=== PATIENT | male | born 1965 | race Caucasian/White ===

== ENCOUNTER 2022-06-03 12:12 | Outpatient (CLI) | payer OTHER, SELFPAY ==
--- NOTE | ~2022-06-03 | CT_ITS ---
EXAMINATION: CT abdomen pelvis wo con DATE: 06/03/2022 12:41 INDICATION: Severe back pain for 2 days. History of ureteral stones. TECHNIQUE: Computed tomography (CT) of the abdomen and pelvis was performed without intravenous contr ast. Automated exposure control and iterative reconstruction technique were employed. Exam dose: 376 .95 mGy-cm total exam DLP. COMPARISON: None. FINDINGS: There is minimal discoid atelectasis or scarring in the dependent lower lobes. The lung bas es are clear of infiltrate or consolidation. Normal heart size. No pericardial or pleural effusion. Very small sliding hiatal hernia The liver, gallbladder, bile ducts, pancreas, pancreatic duct and spleen are unremarkable. Normal morphology of the adrenal glands. No renal mass lesion is evident on this limited noncontrast examination. Small area of arterial calcification or nonobstructing calculus of each kidney, measuring 2 mm on the right, 1.6 x 3.8 mm on the left. No ureteral calculus or hydroureteronephrosis. The urinary bladder is unremarkable. Mild prostate gla nd enlargement. There is atherosclerotic calcification but normal caliber of the abdominal aorta and iliac and femora l arteries. No intraperitoneal or retroperitoneal or pelvic mass lesion or adenopathy or ascites. Normal. Appendix. No bowel obstruction, bowel wall thickening, pneumatosis or intraperitoneal free ai r. Very small fat-containing umbilical hernia. No suspicious osteolytic or osteoblastic lesions. There is severe degenerative disc disease at L4-5. Bilateral hip osteoarthritis. IMPRESSION: Very small sliding hiatal hernia Small calculus versus arterial calcification of each kidney; no ureteral calculus or hydroureteroneph rosis Reviewed, dictated and finalized at [facility]. Reviewed, dictated and finalized at [facility]. IMPRESSION: Very small sliding hiatal hernia Small calculus versus arterial calcification of each kidney; no ureteral calcul us or hydroureteronephrosis
== END 2022-06-03 12:13 | disposition home or self-care (01) ==
LOC: ANHIMG 12:17
PROVIDERS: PCP Family Medicine; Visit Provider Family Medicine
DX: N20.2 Calculus of kidney with calculus of ureter (principal); K44.9 Diaphragmatic hernia without obstruction or gangrene
CPT/HCPCS: 74176

== ENCOUNTER 2024-01-29 11:28 | Outpatient (CLI) | payer OTHER, SELFPAY ==
[2024-01-29 12:17] LABS: Influenza A QL RT-PCR Positive (Negative); Influenza B QL RT-PCR Negative (Negative); RSV RNA, RT-PCR Negative (Negative); SARS-CoV-2 RNA PCR Negative (Negative)
== END 2024-01-29 11:29 | disposition home or self-care (01) ==
LOC: ANHLAB 11:30
PROVIDERS: PCP Family Medicine; Visit Provider Family Medicine
DX: J11.1 Influenza due to unidentified influenza virus with other respiratory manifestations (principal); Z20.822 Contact with and (suspected) exposure to COVID-19
CPT/HCPCS: 87637

== ENCOUNTER → 2024-03-03 09:46 | Outpatient (CLI) | payer OTHER, SELFPAY | PROVIDERS: PCP Family Medicine; Visit Provider Family Medicine | DX: G89.29 Other chronic pain (principal); M25.562 Pain in left knee | CPT/HCPCS: 73564 ==

== ENCOUNTER 2024-04-08 07:48 | Outpatient (CLI) | payer OTHER, SELFPAY ==
--- NOTE | ~2024-04-08 | MR_ITS ---
MRI of the left knee Clinical history: Pain Technique: Coronal proton density and proton density-weighted images, sagittal proton-density and T2 fat-sat images, and axial proton-density fat-saturated images were acquired. Findings: Anterior and posterior cruciate ligaments are intact. Medial collateral ligament and the la teral collateral ligament complex are intact. Popliteus tendon is intact. There is probable focal complex tear of the body segment of the medial meniscus. No lateral meniscal tear seen. There is moderate chondromalacia extensively involving the medial femoral condyle. There is an intram edullary lesion of the distal femur, most compatible with enchondroma, measuring 3 cm in length. Extensor mechanism is intact. Small joint effusion present. No Dickerson's cyst. Impression: Probable focal complex tear of the body segment of the medial meniscus. Moderate chondromalacia the medial femoral condyle. 3 cm distal femoral enchondroma. Small joint effusion. Reviewed, dictated and finalized at [facility]. Impression: Probable focal complex tear of the body segment of the medial meniscus. Moderate chondromalacia the medial femoral condyle. 3 cm distal femoral enchondroma. Small joint effusion.
== END 2024-04-08 07:49 ==
LOC: MICIMG 07:49
PROVIDERS: PCP Family Medicine; Visit Provider Orthopaedic Surgery
DX: M94.262 Chondromalacia, left knee (principal); D16.22 Benign neoplasm of long bones of left lower limb; M25.462 Effusion, left knee
CPT/HCPCS: 73721

== ENCOUNTER 2024-10-20 12:26 | Outpatient (CLI) | payer OTHER, SELFPAY ==
--- NOTE | 2024-10-20 12:30 | ECG_ITS ---
Test Date: 2024-10-20 12:41:53 Measurements Intervals [place] Rate: 66 P: 24 TN: 138 QRS: -5 QRSD: 112 T: 11 QT: 425 QTc: 447 Interpretive Statements SINUS RHYTHM WITH SINUS ARRHYTHMIA INCOMPLETE RIGHT BUNDLE BRANCH BLOCK BORDERLINE R WAVE PROGRESSION, ANTERIOR LEADS BORDERLINE T WAVE ABNORMALITY- INFERIOR LEADS BASELINE ARTIFACT- I, II, III, AVR, AVL, AVF BORDERLINE ECG No previous ECG available for comparison Electronically Signed On 10-20-2024 13:22:42 [employer] [employer] by Bryon Horn D.O.
== END 2024-10-20 12:27 | disposition home or self-care (01) ==
LOC: ANHSURGERY 12:29
PROVIDERS: PCP Family Medicine; Visit Provider Orthopaedic Surgery
DX: R94.31 Abnormal electrocardiogram [ECG] [EKG] (principal); I10 Essential (primary) hypertension
CPT/HCPCS: 93005

== ENCOUNTER 2024-10-27 01:33 | Day surgery (SDC) | payer OTHER, SELFPAY ==
[2024-10-15 14:34] VITALS: BMI 31.2
--- NOTE | 2024-10-15 14:42 | PC.NURSE ---
Report to the Outpatient Waiting Room, entrance under the green pavilion located off [facility], at time _1200_ on date _[id number]_. Planned Procedure Time: _2pm_.? Time changes happen often and if your time is changed the preop area will call you the afternoon before. - You and your visitor will be asked to self-screen and do not enter if you have any COVID symptoms. Please call surgeon if you need to reschedule. - A mask is optional within the hospital at this time. Patients may have clear liquids (water, carbonated beverages, clear teas, apple juice) until 3 hours prior to surgery with a maximum of 20 ounces. - No food from midnight until time of surgery and no smoking. This includes no chewing gum, candy or mints. Take only the following medications with a SIP of water on the morning of surgery: ____None DO NOT STOP ANY OF YOUR OTHER PRESCRIPTION MEDICATIONS PRIOR TO SURGERY EXCEPT THE FOLLOWING Medications to discontinue per physician ___Patient planning to take no more naproxen until after surgery.____ Date to take last dose Please no make-up, nail armenian, hairspray, perfume, deodorant, or body powder the day of surgery.? No jewelry (including any body piercings) or valuables the day of surgery, leave them at home.? Please take a shower or bath the night before, or the morning of, surgery with an antibacterial soap.? Wear comfortable, loose fitting clothing.? - Jewelry must be removed prior to entering the operating room.? Rings and piercings that are not removed may be cut off. - The hospital will not accept responsibility for valuables.? - Please leave all valuables, including medications, at home the day of surgery. If you are going home after surgery, a licensed hyster driver must drive you home.? - NO public transportation without another adult if you receive anesthesia. - We recommend that an adult stay with you for 24 hours following discharge. - We also recommend that you do not drive, make important decision, drink alcoholic beverages, or take any drugs that were not prescribed by your health care provider for at least 24 hours after your discharge time. Follow any additional instructions given to you from your surgeon. Telephone instructions given to _Nasir__and asked if any additional questions and then verbalized understanding. Patient advised to call surgeon office or pre surgery nurse liaison [phone] if any additional questions.
[2024-10-27] VITALS (9 sets, daily range): BP systolic 112–156; BP diastolic 71–98; PULSE 50–65; RESP 10–18; TEMP 36.5–36.7; O2SAT 96–100; BMI 29.5
--- NOTE | 2024-10-27 07:24 | WPDHPUPDATE1 ---
History and Physical Update Update Date/Time: 10/27/24 07:24 History and Physical has been reviewed, including an updated exam of the patient. There are NO changes in the patient's condition. Risks, benefits, and alternatives have been discussed and questions answered. Patient agrees to proceed with procedure.
[2024-10-27] MEDS: CELECOXIB 200 MG CAPSULE PO (11:30)
[2024-10-27] MEDS: ACETAMINOPHEN 500 MG TABLET 1000 MG PO (11:30)
[2024-10-27] MEDS: LACTATED RINGERS 1,000 ML 30 ML IV CONT ×2 (11:50→13:16)
--- NOTE | 2024-10-27 11:57 | P.PNAN_ITS ---
Anes - Initial Pre Proc Eval Procedure: Operation Date: 10/27/24 11:30 Proposed Procedures p Left Knee Arthroscopy, Proceed As Indicated - Thomas Haines MD Date/Time: 10/27/24 11:57 Surgeon: Thomas Haines MD Pre Op Diagnosis: Lt Knee Medial Meniscus Tear Patient Data Age: 59 Gender: M Height: 1.83 m Weight: 104.5 kg Allergies Allergy/AdvReac Type Severity Reaction Status Date / Time No Known Allergies Allergy Verified 10/27/24 11:45 Home Medications Medication Instructions Recorded Confirmed Type alprazolam 0.5 mg tablet 0.5 mg PO BID PRN anxiety #20 tabs 02/05/23 10/15/24 Rx naproxen 500 mg tablet (Naprosyn) 500 mg PO BID PRN pain #60 tabs 04/01/24 10/27/24 Rx atorvastatin 10 mg tablet 10 mg PO DAILY #90 tabs 05/20/24 10/15/24 Rx lisinopril 10 mg tablet 10 mg PO DAILY #90 tabs 05/20/24 10/15/24 Rx sildenafil 100 mg tablet 100 mg PO DAILY PRN sexual 09/29/24 10/15/24 Rx activity #30 tabs omeprazole 20 mg capsule,delayed 20 mg PO DAILY #90 caps 09/30/24 10/15/24 Rx release chlorhexidine gluconate 4 % 1 applic topical ONCE #237 mL 10/20/24 Rx topical liquid (Hibiclens) hydrocodone 5 mg-acetaminophen 325 1 tablet PO Q12H PRN pain #20 tabs 10/27/24 Rx mg tablet Patient hx anesthesia problems: none Family hx anesthesia problems: none Results Review: All pre-operative results and documents have been reviewed as part of the pre- operative evaluation. [facility] Past Medical History Medical History Acute low back pain with right-sided sciatica (06/01/22) CT of the abdomen pelvis on 06/03/2022 was unremarkable except for severe degenerative disc disease at L4-L5 and bilateral osteoarthritis of the hips. Acute non-recurrent maxillary sinusitis BMI 31.0-31.9,adult BMI 32.0-32.9,adult BMI 33.0-33.9,adult Chronic pain of left knee X-ray left knee 03/03/2024 was normal. MRI 04/08/2024 with probable focal complex tear of the medial meniscus, moderate chondromalacia, 3 cm enchondroma of the distal femur. Chronic pain of right hip Contact dermatitis due to plant (~06/2023) Erectile dysfunction Total testosterone 583 with free testosterone 11.19 on 12/28/2022. Fear of flying (~12/26/22) GERD (gastroesophageal reflux disease) (~09/2022) History of meniscal tear Influenza-like illness (~01/27/24) Muscle spasm Neuritis of right ulnar nerve (~11/2022) Vitamin B12 and folic acid are normal 12/28/2022. Obesity (BMI 30.0-34.9) Polyp, sigmoid colon Rib pain on right side (~06/2024) Seasonal allergies Surgical History Surgical History History of eye surgery History of hernia repair Social History Social History Social History: caffeine use Smoking status: Never smoker Alcohol intake: current Drinks per week: 6 Alcohol use details: socially, beer Substance use: never Substance use type: does not use Lack of Transportation: No Lack of Food: Never True Current Housing: I Have Housing Concerned About Future Housing: No Difficulty Paying Gas/Electric Bills: No Difficulty Paying for Meds: No Currently Unemployed: No Education: Master's Degree or Higher Difficulty w/ Childcare or Family Care: No Living arrangements: with family Occupation/Education: occupation Additional occupation/education comments: Human Resources Gender identity (if verbalized by the patient): Male Spiritual care concerns: No Anes - Eval Final PreProcedure Day of Procedure 10/27/24 11:57 Patient weight: obese Heart: regular rate and rhythm Lungs: clear to auscultation Airway: Mallampati scale class II Neurological: alert and oriented Last oral intake: >/= 8 hours ASA classification: III Emergent: no Anesthetic plan: proceed Anesthesia type and monitoring: general LMA and standard monitoring Results Review: All pre-operative results and documents have been reviewed as part of the pre- operative evaluation. Informed Consent: The patient's anesthetic plan and its attendant risks and benefits were discussed with the patient/family/POA. Questions were solicited and answers provided to the satisfaction of the patient/family/POA.
[2024-10-27] MEDS: ceFAZolin 2 GM/D5W 50 ML 2 GM/50 ML BAG IVPB (12:09)
[2024-10-27] MEDS: BUPivacaine HCL 0.5% 10 ML AMP 30 ML INFILTRATE (12:27)
--- NOTE | 2024-10-27 13:18 | W.PM.PROC2 ---
Procedure Note - Detailed Date of Procedure 10/27/24 Pre-op Diagnosis Lt Knee Medial Meniscus Tear Post-op Diagnosis Same Procedure Performed LEFT KNEE SCOPE Surgeon Thomas Haines MD Anesthesia General Description of Procedure PATIENT WAS TAKEN TO THE OR. LEFT LEG WAS PREPPED AND DRAPED STERILE. TROCARS WERE PLACED IN THE USUAL FASHION. CAMERA WAS INTRODUCED. THERE WAS SEVERE CHONDROMALACIA TO THE PATELLA FEMORAL JOINT. THERE WAS A LOT OF SYNOVITIS IN ALL COMPARTMENTS. THE MEDIAL COMPARTMENT SHOWED CHONDROMALACIA TO THE MEDIAL FEMORAL CONDYLE. A SHAVER WAS USED TO PREFORM A CHONDROPLASTY. THERE WAS A COMPLEX MEDIAL MENISCUS TEAR. THE TEAR WAS RESECTED WITH A BITER AND A SHAVER DOWN TO A SMOOTH BASE. THE ACL WAS PARTIALLY TORN BUT INTACT. THE LATERAL MENISCUS WAS NOT TORN. THE LATERAL COMPARTMENT HAD MINIMAL CHONDROMALACIA. CHONDROPLASTY WAS PREFORMED. A SYNOVECTOMY WAS PREFORMED WELL. THE PATELLO FEMORAL JOINT UNDERWENT CHONDROPLASTY. THERE WAS GRADE 2 AND 3 CHONDROMALACIA IN PART OF THE TROCHLEA AND PART OF THE PATELLA. SYNOVECTOMY WAS PREFORMED IN THE SUPERIOR MEDIAL COMPARTMENT. THE WOUNDS WERE APPROXIMATED WITH 4.0 NYLON. STERILE DRESSING WAS APPLIED. PATIENT WAS EXTUBATED. Estimated Blood Loss 5 Complications No immediate complications Condition Stable Disposition PACU
[2024-10-27] MEDS: fentaNYL CITRATE INJ (*CRX) 100 MCG/2 ML VIAL 25 MCG IV PUSH ×6 (13:43→14:08)
[2024-10-27] MEDS: oxyCODONE HCL (*CRX) 5 MG TAB IR PO (14:40)
== END 2024-10-27 15:25 | disposition home or self-care (01) ==
PROVIDERS: PCP Family Medicine; Visit Provider Orthopaedic Surgery
PROC: (CPT 29870; principal; 2024-10-27 11:30)
DX: S83.232A Complex tear of medial meniscus, current injury, left knee, initial encounter (principal); M94.262 Chondromalacia, left knee; M65.862 Other synovitis and tenosynovitis, left lower leg; G89.29 Other chronic pain; M25.551 Pain in right hip; N52.9 Male erectile dysfunction, unspecified; K21.9 Gastro-esophageal reflux disease without esophagitis; M62.838 Other muscle spasm; E66.9 Obesity, unspecified; Z68.29 Body mass index [BMI] 29.0-29.9, adult; X58.XXXA Exposure to other specified factors, initial encounter; Z79.1 Long term (current) use of non-steroidal anti-inflammatories (NSAID); Z79.891 Long term (current) use of opiate analgesic; Z98.890 Other specified postprocedural states; Z96.651 Presence of right artificial knee joint; Z86.0100 Personal history of colon polyps, unspecified
CPT/HCPCS: 29881; 29876; A9270; J0690; J1100; J2250; J2405; J2704; J3010; J7120